=== PATIENT | female | born 1940 | race Caucasian/White ===

== ENCOUNTER 2019-01-29 07:06 | Observation (INO) | payer MEDICARE ==
[2019-01-26 10:38] VITALS: BMI 21.9
[2019-01-29 08:23] LABS: Hemoglobin 13.3 g/dL (12.0-16.0); Mean Corpuscular HGB CONC 32.4 g/dL (32.0-36.0); Mean Corpuscular Hemoglobin 32.7 pg (27.0-31.0); Mean Platelet Volume 7.9 fL (7.4-10.4); Platelet Count 193 thou/uL (130-400); RBC Distribution Width 11.7 % (11.5-14.5); Red Blood Cell (RBC) Count 4.05 mill/uL (4.20-5.40); White Blood Cell (WBC) Count 4.4 thou/uL (4.8-10.8)
[2019-01-29 08:32] LABS: Anion Gap 12 mmol/L (10-20); BUN (Urea Nitrogen) 13 mg/dL (9.8-20.1); Calc. Creatinine Clearance 58 mL/min (70-130); Calcium 9.3 mg/dL (7.8-10.44); Carbon Dioxide 26 mmol/L (23-31); Chloride 107 mmol/L (98-107); Estimated GFR-MDRD 76; Glucose 90 mg/dL (83-110); Potassium 3.7 mmol/L (3.5-5.1); Sodium 141 mmol/L (136-145)
[2019-01-29] MEDS ORDERED: Sodium Chloride 0.9% 10 ML ONE ×2 (08:45→23:06)
[2019-01-29] MEDS ORDERED: Fentanyl 100 MCG/2 ML VIAL ONE ×4 (09:02→10:51)
[2019-01-29] MEDS ORDERED: HYDROmorphone 2 MG/ML VIAL SLOW IVP PRN (09:54)
[2019-01-29] MEDS ORDERED: Morphine Sulfate 2 MG/ML SYRINGE SLOW IVP PRN (09:54)
[2019-01-29] MEDS ORDERED: Ondansetron HCl/PF 4 MG/2 ML Vial IVP PRN (09:54)
[2019-01-29] MEDS ORDERED: Promethazine HCl 25 MG/ML VIAL IM PRN ×2 (09:54→16:01)
[2019-01-29] MEDS ORDERED: Promethazine HCl 25 MG/ML VIAL SLOW IVP PRN (09:54)
[2019-01-29] MEDS ORDERED: PACU-Morphine 4MG/ML VIAL SLOW IVP PRN (09:54)
--- NOTE | 2019-01-29 10:13 | OP ---
DATE OF PROCEDURE: 01/29/2019 CLERK SPECIALIST: Benito Roland PA-C PROCEDURES PERFORMED: Anterior cervical diskectomy C3 through C6, interbody arthrodesis, intervertebral biomechanical device, local morselized autograft, demineralized bone matrix, anterior titanium instrumentation C3 through C6. DESCRIPTION OF PROCEDURE: The patient was brought to the operating room and intubated. She was positioned supine with head in modest extension on gel-filled donut. An incision was made in the right precervical area and dissected medial to the sternocleidomastoid muscle, identified the anterior cervical spinal, and the level was confirmed by x-ray. We debrided the anterior osteophytes and placed distraction across the disk spaces. The bones were found to be extremely soft. The disks themselves were completely removed for the purpose of decompression and once the decompression was secured, the bony endplates were decorticated for the purpose of arthrodesis and appropriate-sized intervertebral biomechanical PEEK device was brought in the field. It was filled with demineralized bone matrix and local morselized autograft, and tapped in place securely at C3-C4, C4-C5 and C5-C6. Next, an anterior plate was brought into field and secured to C3, C4, C5, and C6 using two 14-mm screws at each level. The wound was then extensively irrigated. MAC hemostasis was secured and the wound was closed in anatomic layers over drain. Job ID: [id number]
[2019-01-29] MEDS ORDERED: Lidocaine 1% PF 5 ML VIAL ONE (10:28)
[2019-01-29] MEDS ORDERED: PROPOFOL 200 MG/20 ML VIAL ONE (10:28)
[2019-01-29] MEDS ORDERED: Glycopyrrolate 0.2 MG/ML 5 ML SYRINGE ONE (10:28)
[2019-01-29] MEDS ORDERED: Morphine 4 MG/ML VIAL ONE ×2 (10:28→13:08)
[2019-01-29] MEDS ORDERED: Rocuronium Bromide 10 MG/ML (10ML VIAL) ONE (10:28)
[2019-01-29] MEDS ORDERED: ePHEDrine/0.9% NaCl/PF SYRINGE 50 mg/10 ml ONE (10:28)
[2019-01-29] MEDS ORDERED: Ondansetron PF 4 MG/2 ML Vial ONE (10:28)
[2019-01-29] MEDS ORDERED: Dexamethasone 20 MG/5 ML VIAL ONE (10:28)
[2019-01-29] MEDS ORDERED: Promethazine HCl 25 MG/ML VIAL ONE (10:42)
[2019-01-29] MEDS ORDERED: Morphine 2 MG/ML SYRINGE ONE (15:50)
[2019-01-29] MEDS ORDERED: HYDROcodone/Acetaminophen 10/325 mg Tablet PO PRN ×2 (16:01)
[2019-01-29] MEDS ORDERED: Mag-Al 1200 mg/1200 mg/30 ML UDCUP PO PRN (16:01)
[2019-01-29] MEDS ORDERED: tiZANidine HCl 4 MG TAB PO PRN (16:01)
[2019-01-29] MEDS ORDERED: diphenhydrAMINE 25 MG CAP PO PRN (16:01)
[2019-01-29] MEDS ORDERED: Morphine 4 MG/ML VIAL SLOW IVP PRN (16:01)
[2019-01-29] MEDS ORDERED: Milk Of Magnesia 30 ML UDCUP PO PRN (16:01)
[2019-01-29] MEDS ORDERED: diphenhydrAMINE 50 MG/ML VIAL IVP PRN (16:01)
[2019-01-29] MEDS ORDERED: traMADol HCl 50 MG TAB PO PRN (16:01)
[2019-01-29] MEDS ORDERED: Morphine 2 MG/ML SYRINGE SLOW IVP PRN (16:01)
[2019-01-29] MEDS ORDERED: Ondansetron PF 4 MG/2 ML Vial IVP PRN (16:01)
[2019-01-29] MEDS ORDERED: Promethazine HCl 12.5 MG SUPP PR PRN (16:01)
[2019-01-29] MEDS ORDERED: Promethazine 25 MG TAB PO PRN (16:01)
[2019-01-29] MEDS ORDERED: Acetaminophen 500 MG TAB PO PRN (16:05)
[2019-01-29] MEDS: CEFAZOLIN 2 GM in Premix Bag 1 BAG IVPB SCH (19:02)
[2019-01-29] MEDS ORDERED: tiZANidine HCl 4 MG TAB PO SCH (21:00)
[2019-01-29] MEDS ORDERED: Topiramate 25 MG TAB PO SCH (21:00)
[2019-01-29] MEDS: traMADol HCl 50 MG TAB PO PRN (21:53)
[2019-01-29] MEDS: Sodium Chloride 0.9% 1,000 ML IV SCH (23:21)
[2019-01-30] MEDS: CEFAZOLIN 2 GM in Premix Bag 1 BAG IVPB SCH ×2 (00:19→08:09)
[2019-01-30] MEDS: Sodium Chloride 0.9% 1,000 ML IV SCH (05:24)
[2019-01-30] MEDS ORDERED: Levothyroxine 150 MCG TAB PO SCH (06:00)
[2019-01-30] MEDS: traMADol HCl 50 MG TAB PO PRN (09:45)
[2019-01-30 11:53] VITALS: BP 115/61; TEMP 99.1
--- NOTE | 2019-01-30 14:16 | DIS ---
DATE OF ADMISSION: 01/29/2019 DATE OF DISCHARGE: 01/30/2019 The patient is a 78-year-old female, recently evaluated in our office for cervical degenerative disk disease. She underwent C3 through C6 ACDF on 01/29/2019. Following the surgery, she was transitioned to the Med/Surg floor, where her pain has been well-controlled with p.o. medications, she is tolerating a regular diet, and she is voiding appropriately. She did have a NAOMIE drain placed intraoperatively with minimal output only 30 mL out over the first night. This was removed on postoperative day #1. The patient is otherwise doing very well and we will dismiss to home on 01/30/2019. I have discussed home care and precautions. We will follow up the patient in 2 weeks in the office. Job ID: [id number]
== END 2019-01-30 12:15 | disposition home or self-care (01) ==
LOC: SDC 07:06 → 3SE 16:14
PROVIDERS: ADMIT Neurological Surgery; ATTEND Neurological Surgery
PROC: 0RG20A0 Fusion of 2 or more Cervical Vertebral Joints with Interbody Fusion Device, Anterior Approach, Anterior Column, Open Approach (ICD-10-PCS; principal; 2019-01-29)
PROC: 0RG2070 Fusion of 2 or more Cervical Vertebral Joints with Autologous Tissue Substitute, Anterior Approach, Anterior Column, Open Approach (ICD-10-PCS; 2019-01-29)
PROC: 0RT30ZZ Resection of Cervical Vertebral Disc, Open Approach (ICD-10-PCS; 2019-01-29)
DX: M50.10 Cervical disc disorder with radiculopathy, unspecified cervical region (principal)
CPT/HCPCS: 20930; 20936; 22551; 22552 ×2; 22845; 22853 ×3; 76000; 80048; 85027; 96374; 96376 ×2; C1713 ×2; C1776; G0378 ×2; J0131; J0690; J1100; J2001; J2270; J2405; J2550; J2704; J3010; J3490

== ENCOUNTER 2019-02-19 09:15 | Outpatient (CLI) | payer MEDICARE ==
--- NOTE | 2019-02-19 09:36 | RAD ---
CERVICAL SPINE SERIES 3 VIEWS: HISTORY: Neck pain going down both shoulders. FINDINGS: The patient has undergone anterior cervical fusion with placement of a plate and screws extending fro m C3 to C6. Markers of the disk implant are within the confines of the intervening disk levels. A d orsal column stimulator device is noted. There are marked arthritic changes of the facet joints. IMPRESSION: Postoperative changes of the spine. POS: [facility]
== END 2019-02-19 09:16 | disposition home or self-care (01) ==
LOC: TBSIIMAG 09:15
PROVIDERS: ATTEND Neurological Surgery
DX: M54.12 Radiculopathy, cervical region (principal); Z98.890 Other specified postprocedural states
CPT/HCPCS: 72040